=== PATIENT | female | born 1975 | race Caucasian/White ===

== ENCOUNTER 2016-04-17 20:24 | Emergency (ER) | payer OTHER ==
--- NOTE | ~2016-04-17 | CR72 ---
[facility] A Service of [facility] & [facility] RADIOLOGY TEXT RESULTS PATIENT: ANNITA BAEZ LOCATION: [facility] : [birth year] UNIT #: [id number] AGE: [address]: Nadeem Quigley DO SEX: F ORDER DR: [id number] [facility] [address] [place], [place] [address] [id number] MR#: [id number] Acc #: [id number] NAME: ANNITA BAEZ : 1975 SEX: F STUDY DATE/TIME: 04/17/2016 19:54 UNIT: [facility] ROOM: STUDY DESCRIPTION: CR Chest Single View Portable Attending Physician: Nadeem Quigley D.O. Referring Physician: Primary Care Physician No Ordering Physician: Nadeem Quigley D.O. Primary Care Physician: Primary Care Physician No MEDICAL IMAGING REPORT This report is preliminary unless electronic signature is present EXAM AP portable chest, 04/17/2016 at 10:54 HISTORY 41-year-old female with complaints of cough, chest pain, shortness of breath for 3 days. 20-year smoking history. COMPARISON AP portable chest, 08/07/2013 FINDINGS A single AP portable view of the chest shows both lungs to be clear. The heart is normal in size. The mediastinal contour is normal. No significant bone abnormalities are seen. IMPRESSION Normal portable chest. Dictated by... Swati Tubbs M.D. THIS IS AN ELECTRONICALLY VERIFIED REPORT Swati Tubbs M.D. at 04/18/2016 2:09 PM Windy TD: 04/18/2016 09:16 JOB #: [id number] MEDICAL IMAGING REPORT COPY
--- NOTE | ~2016-04-17 | EKG ---
PATIENT: ANNITA BAEZ UNIT #: [id number] Ventricular Rate: 84 BPM Atrial Rate: 84 BPM P-R Interval: 130 ms QRS Duration: 84 ms Q-T Interval: 406 ms QTC Calculation(Bezet): 479 ms P [place]: 69 degrees Calculated R [place]: 79 degrees Calculated T [place]: 52 degrees Diagnosis Line: Normal sinus rhythm Diagnosis Line: Normal ECG Diagnosis Line: When compared with ECG of 07-AUG-2013 18:46, Diagnosis Line: No significant change was found Diagnosis Line: Confirmed by DORA ADAIR MD ([id number]) on Diagnosis Line: 04/18/2016 4:11:57 PM INTERPRETING MD: GIOVANY SARGENT
[2016-04-17 20:08] LABS: INFLUENZA A NEG (NEG); INFLUENZA B NEG (NEG)
[2016-04-17 20:17] LABS: BASOPHIL% 0.2 % (0-2.5); EOSINOPHIL# 0.2 X10e3 (0-0.7); EOSINOPHIL% 2.2 % (0.0-7.0); HEMATOCRIT 43.3 % (35.0-45.0); HEMOGLOBIN 14.4 gm/dL (12.0-16.0); LYMPHOCYTE# 1.4 X10e3 (1.0-3.5); LYMPHOCYTE% 12.9 % (17.0-45.0); MEAN CELL VOLUME 85.8 FL (83-96); MEAN CORPUSCULAR HEMOGLOBIN 28.6 PG (28-34); MEAN CORPUSCULAR HGB CONC 33.4 g/dL (30-36); MONOCYTE# 0.5 X10e3 (0-1.0); MONOCYTE% 4.6 % (3.0-12.0); NEUTROPHIL# 8.4 X10e3 (1.5-7.1); NEUTROPHIL% 80.1 % (40-75); PLATELET COUNT 285 X10e3 (140-420); RED BLOOD COUNT 5.05 X10e (3.90-5.30); RED CELL DISTRIBUTION WIDTH 14.5 % (11.0-15.5); WHITE BLOOD COUNT 10.5 X10e3 (4.0-10.5)
[2016-04-17 20:18] LABS: POC - CKMB <1.0 ng/mL (0.0-7.9); POC - TROPONIN <0.05 ng/mL (<=0.05)
[2016-04-17 20:19] LABS: DIFF IND NO
[2016-04-17 20:32] LABS: PARTIAL THROMBOPLASTIN TIME 26.9 SECONDS (23.5-31.3); PROTHROMBIN TIME (PATIENT) 10.3 SECONDS (9.6-11.5)
[2016-04-17 20:49] LABS: BLOOD UREA NITROGEN 7 mg/dL (9-23); CALCIUM SERUM 8.6 mg/dL (8.4-10.2); CARBON DIOXIDE 25 mmol/L (22-31); CHLORIDE 106 mmol/L (100-111); CREATININE SERUM 0.7 mg/dL (0.6-1.4); GLOM FILT RATE Estimated ABOVE60 mL/min (>60); GLUCOSE FASTING 87 mg/dL (70-110); POTASSIUM 3.8 mmol/L (3.5-5.1); SODIUM 138 mmol/L (135-145)
== END 2016-04-17 22:25 | disposition home or self-care (01) ==
LOC: CED 20:24
PROVIDERS: Emergency Medicine
DX: J44.1 Chronic obstructive pulmonary disease with (acute) exacerbation (principal); R03.0 Elevated blood-pressure reading, without diagnosis of hypertension; Z91.041 Radiographic dye allergy status; Z91.013 Allergy to seafood
CPT/HCPCS: 36415; 71010; 80048; 82553; 84484; 85025; 85379; 85610; 85730; 87804; 93005; 94640; 96374; 99284; J2930

== ENCOUNTER 2016-09-14 11:04 | Emergency (ER) | payer OTHER ==
[~2016-09-14] VITALS: Ht 165.1 cm; Wt 93.0 kg
--- NOTE | ~2016-09-14 | CT4 ---
[facility] A Service of [facility] RADIOLOGY TEXT RESULTS PATIENT: ANNITA BAEZ LOCATION: [facility] : 71 UNIT #: [id number] AGE: [address]: Tejinder Hopkins MD SEX: F ORDER DR: [id number] [facility] [address] [place], [place] [address] [id number] E MR#: [id number] Acc #: [id number] NAME: ANNTIA BAEZ : 1975 SEX: F STUDY DATE/TIME: 09/14/2016 14:03 UNIT: [facility] ROOM: STUDY DESCRIPTION: CT Abd and Pelv Wo Cont Attending Physician: Tejinder Hopkins M.D. Referring Physician: [facility] Ordering Physician: Tejinder Hopkins M.D. Primary Care Physician: [facility] MEDICAL IMAGING REPORT This report is preliminary unless electronic signature is present EXAM CT abdomen and pelvis without contrast. INDICATIONS Upper abdominal pain for the past week. PROCEDURE Unenhanced CT of the abdomen and pelvis. This CT exam was performed with one or more of the following radiation dose reduction techniques: automatic exposure control, adjustment of mA and/or kV according to patient size, and iterative reconstruction. COMPARISON None. FINDINGS ABDOMEN WITHOUT CONTRAST: Included lung bases are clear. Liver enlarged measuring 20.3 cm. Hepatic steatosis. The spleen measures 13.8 cm. There is a punctate nonobstructing calculus in the left kidney. Adrenal glands/pancreas unremarkable. Previous cholecystectomy. Bowel loops are nondilated, appendix is normal. Small fat-containing umbilical hernia. PELVIS WITHOUT CONTRAST: No pelvic mass or fluid. No aggressive appearing bone lesion. IMPRESSION 1. No acute findings. 2. Hepatosplenomegaly with diffuse steatosis. 3. Small fat-containing umbilical hernia. 4. Tiny nonobstructing calculus in the left kidney. [facility] A Service of [facility] RADIOLOGY TEXT RESULTS PATIENT: ANNITA BAEZ LOCATION: [facility] : 71 UNIT #: [id number] AGE: [address]: Tejinder Hopkins MD SEX: F ORDER DR: Dictated by... Maxwell Mayes M.D. THIS IS AN ELECTRONICALLY VERIFIED REPORT Maxwell Mayes M.D. at 09/18/2016 8:18 AM PAWEL/claude TD: 09/14/2016 16:46 JOB #: [id number] MEDICAL IMAGING REPORT Page 1 of 1 COPY
[2016-09-14 12:15] LABS: BASOPHIL% 0.3 % (0-2.5); EOSINOPHIL# 0.2 X10e3 (0-0.7); EOSINOPHIL% 2.7 % (0.0-7.0); HEMATOCRIT 41.9 % (35.0-45.0); HEMOGLOBIN 14.1 gm/dL (12.0-16.0); LYMPHOCYTE# 1.8 X10e3 (1.0-3.5); LYMPHOCYTE% 22.5 % (17.0-45.0); MEAN CELL VOLUME 85.5 FL (83-96); MEAN CORPUSCULAR HEMOGLOBIN 28.9 PG (28-34); MEAN CORPUSCULAR HGB CONC 33.8 g/dL (30-36); MEAN PLATELET VOLUME 6.9 FL (6.5-11.5); MONOCYTE# 0.5 X10e3 (0-1.0); NEUTROPHIL# 5.6 X10e3 (1.5-7.1); NEUTROPHIL% 68.5 % (40-75); PLATELET COUNT 331 X10e3 (140-420); RED CELL DISTRIBUTION WIDTH 14.2 % (11.0-15.5); WHITE BLOOD COUNT 8.1 X10e3 (4.0-10.5)
[2016-09-14 12:20] LABS: DIFF IND NO
[2016-09-14 12:57] LABS: BILIRUBIN, DIRECT 0.1 mg/dL (0.0-0.2); BILIRUBIN,INDIRECT 0.5 mg/dL (0.0-0.9); BILIRUBIN,TOTAL 0.6 mg/dL (0.2-2.0); BUN/CREATININE RATIO 12.85; CREATININE SERUM 0.7 mg/dL (0.6-1.4); GLOM FILT RATE Estimated 106.1 mL/min (>60); POTASSIUM 3.7 mmol/L (3.5-5.1); PROTEIN TOTAL SERUM 7.6 g/dL (6.0-8.3)
== END 2016-09-14 14:58 | disposition home or self-care (01) ==
LOC: CED 11:04
PROVIDERS: Emergency Medicine
DX: R10.9 Unspecified abdominal pain (principal); Z91.041 Radiographic dye allergy status
CPT/HCPCS: 36415; 74176; 80048; 80076; 82150; 83690; 84703; 85025; 99284; J2270; J2405